=== PATIENT | female | born 1980 | race Caucasian/White ===

== ENCOUNTER 2017-09-04 07:27 | Emergency (ER) | payer SELFPAY ==
[~2017-09-04 07:27] MED LIST: AZIT500T45 PO; BACDS PO; CLI150 PO; CYCL-332 PO; DIA5 PO; IBU600 PO; IBU800 PO; IBUPROFEN; LOR05 PO; LOR5 PO; NAP250 PO; OXYC-689 PO; PER PO; TRA50 PO; TRAZ50 PO; TYLENOL
--- NOTE | 2017-09-04 07:37 | ER Report ---
History and Physical Time Seen By MD: 07:36 Hx. of Stated Complaint: COUGH FOR ONE WEEK. HPI/ROS CHIEF COMPLAINT: cough, hemoptysis HISTORY OF PRESENT ILLNESS: This is a 37 year old female. She has had a cough for a week. She noted some red blood with coughing yesterday and this morning. She has been having subjective fevers and chills. Chest tightness. Runny nose and sore throat. No epistaxis, but has a scab at the opening of the right nasal passage from blowing nose so much. No other bleeding such as blood in stool or urine and no bruising. She has had several bouts of diarrhea. She has some nausea and vomiting. She has been able to drink some water, but no food and having overall decreased oral intake. Slight decrease in urination, but no dysuria. Feels weak and tired overall, but no focal weakness. Having headache. REVIEW OF SYSTEMS: As above Allergies: Coded Allergies: Penicillins (Unverified Allergy, Mild, 09/04/17) Home Meds Active Scripts Ondansetron (ZOFRAN ODT) 4 Mg Tab.rapdis, 4 MG PO Q6H Y for NAUSEA/VOMITING, # 20 TAB.CATRACHITA 0 Refills Prov:CHET BRYANT MD 09/04/17 Guaifenesin/Codeine (GUAIFENESIN-CODEINE SYRUP) 5 Ml Syrp, 5 ML PO Q6H Y for COUGH, #120 ML 0 Refills Prov:CHET BRYANT MD 09/04/17 Azithromycin (ZITHROMAX) 250 Mg Tablet, 0 PO QDAY, #6 TAB 0 Refills Take 2 tablets today, then one daily for 4 more days Prov:CHET BRYANT MD 09/04/17 Doxycycline Hyclate (DOXYCYCLINE HYCLATE) 100 Mg Capsule, 100 MG PO BID, #20 CAPSULE 0 Refills Prov:CHET BRYANT MD 09/04/17 Discontinued Reported Medications Azithromycin (ZITHROMAX TRI-DUANE) 500 Mg Tablet, 500 MG PO QDAY 03/13/13 [None] No Conflict Check 02/10/12 Past Medical/Surgical History Hepatitis C Reviewed Nurses Notes: Yes Hx Smoking: Yes Hx Substance Use Disorder: No Hx Alcohol Use: Yes (OCC) Constitutional Vital Sign - Last 24 Hours 09/04/17 09/04/17 09/04/17 3/2/18 07:30 07:31 07:32 07:34 Pulse 115 Resp 20 B/P (MAP) 124/101 124/101 (109) 131/94 (106) Pulse Ox 82 O2 Delivery Room Air O2 Flow Rate 2.0 09/04/17 09/04/17 09/04/17 09/04/17 07:39 07:42 07:57 08:12 Pulse 109 111 105 Resp 13 27 18 B/P (MAP) 128/79 (95) 09/04/17 09/04/17 09/04/17 09/04/17 08:27 08:30 09:00 09:15 Pulse 95 101 98 Resp 14 24 15 B/P (MAP) 117/79 (92) Pulse Ox 92 09/04/17 09/04/17 09/04/17 09/04/17 09:30 09:45 10:00 10:15 Pulse 104 116 103 Resp 12 19 20 B/P (MAP) 117/89 (98) 108/86 (93) Pulse Ox 91 91 09/04/17 09/04/17 09/04/17 09/04/17 10:30 10:43 10:45 11:00 Pulse 95 100 93 Resp 9 18 19 9 B/P (MAP) 108/70 (83) 115/82 (93) Pulse Ox 91 83 92 92 O2 Delivery Room Air 09/04/17 09/04/17 11:15 11:46 Pulse 106 105 Resp 25 B/P (MAP) 121/82 (95) Pulse Ox 92 85 O2 Delivery Room Air Intake and Output 09/04/17 09/04/17 09/05/17 15:00 23:00 07:00 Intake Total 1000 ml Balance 1000 ml Physical Exam General Appearance: The patient is alert. No acute distress. Non-toxic in appearance. Eyes: Pupils are equal, round. No pallor, injection or icterus. ENT: Mucous membranes are moist. Normal oral mucosa. Posterior oropharynx has erythema. Nasal mucosa with erythema. Tympanic membranes show bilateral effusion , but no redness or bulging. Neck: Supple and non tender. Respiratory: Lungs are clear to auscultation. Cardiovascular: Regular rate and rhythm. No murmurs, gallops or rubs. Normal capillary refill. Gastrointestinal: Abdomen is soft and non tender. Nondistended. Normal active bowel sounds. Neurological: Alert and oriented x3. Skin: Warm and dry. No rashes. No bruising. Musculoskeletal: Extremities are nontender. No tenderness in back. DIFFERENTIAL DIAGNOSIS: After history and physical exam, differential diagnosis was considered for cough, hemoptysis, hypoxia and shortness of breath, likely infectious etiology such as pulmonary infectious process or influenza, but will look for other causes of bleeding and hemoptysis as well. Medical Decision Making Data Points Result Diagram: 09/04/17 1000 09/04/17 1000 Laboratory Hematology Test 09/04/17 07:35 09/04/17 10:00 Influenza Virus Type A (PCR) Negative (NEGATIVE) Influenza Virus Type B (PCR) Positive (NEGATIVE) Red Blood Count 4.35 M/uL (4.17-5.56) Mean Corpuscular Volume 104.1 fL (80.0-96.0) Mean Corpuscular Hemoglobin 36.0 pg (26.0-33.0) Mean Corpuscular Hemoglobin Concent 34.6 g/dL (32.0-36.0) Red Cell Distribution Width 12.6 % (11.5-14.5) Mean Platelet Volume 9.2 fL (7.2-11.1) Neutrophils (%) (Auto) % (39.4-72.5) Lymphocytes (%) (Auto) % (17.6-49.6) Monocytes (%) (Auto) % (4.1-12.4) Eosinophils (%) (Auto) % (0.4-6.7) Basophils (%) (Auto) % (0.3-1.4) Nucleated RBC Relative Count (auto) /100WBC Neutrophils # (Auto) K/uL (2.0-7.4) Lymphocytes # (Auto) K/uL (1.3-3.6) Monocytes # (Auto) K/uL (0.3-1.0) Eosinophils # (Auto) K/uL (0.0-0.5) Basophils # (Auto) K/uL (0.0-0.1) Nucleated RBC Absolute Count (auto) K/uL Neutrophils % (Manual) 46 % (39.4-72.5) Band Neutrophils % 14 % Lymphocytes % (Manual) 32 % (17.6-49.6) Atypical Lymphocytes % 1 % Monocytes % (Manual) 7 % (4.1-12.4) Eosinophils % (Manual) 0 % (0.4-6.7) Basophils % (Manual) 0 % (0.3-1.4) Peripheral Blood Smear Yes Y/N Prothrombin Time 15.0 seconds (12.0-14.4) Prothromb Time International Ratio 1.17 Activated Partial Thromboplast Time 25 seconds (23-35) Sodium Level 127 mmol/L (137-145) Potassium Level 3.3 mmol/L (3.5-5.0) Chloride Level 94 mmol/L (98-107) Carbon Dioxide Level 22 mmol/L (22-31) Blood Urea Nitrogen 15 mg/dl (7-18) Creatinine 1.00 mg/dl (0.52-1.04) Glomerular Filtration Rate Calc > 60.0 Random Glucose 98 mg/dl (75-110) Calcium Level 8.0 mg/dl (8.4-10.2) Total Bilirubin 0.9 mg/dl (0.2-1.3) Aspartate Amino Transf (AST/SGOT) 53 U/L (0-35) Alanine Aminotransferase (ALT/SGPT) 107 U/L (0-56) Alkaline Phosphatase 82 U/L (0-126) Total Protein 7.2 gm/dl (6.3-8.2) Albumin 3.3 g/dl (3.5-5.0) Chemistry Test 09/04/17 07:35 09/04/17 10:00 Influenza Virus Type A (PCR) Negative (NEGATIVE) Influenza Virus Type B (PCR) Positive (NEGATIVE) White Blood Count 5.3 k/uL (4.5-11.0) Red Blood Count 4.35 M/uL (4.17-5.56) Hemoglobin 15.7 g/dL (12.0-16.0) Hematocrit 45.3 % (34.0-47.0) Mean Corpuscular Volume 104.1 fL (80.0-96.0) Mean Corpuscular Hemoglobin 36.0 pg (26.0-33.0) Mean Corpuscular Hemoglobin Concent 34.6 g/dL (32.0-36.0) Red Cell Distribution Width 12.6 % (11.5-14.5) Platelet Count 48 K/uL (150-450) Mean Platelet Volume 9.2 fL (7.2-11.1) Neutrophils (%) (Auto) % (39.4-72.5) Lymphocytes (%) (Auto) % (17.6-49.6) Monocytes (%) (Auto) % (4.1-12.4) Eosinophils (%) (Auto) % (0.4-6.7) Basophils (%) (Auto) % (0.3-1.4) Nucleated RBC Relative Count (auto) /100WBC Neutrophils # (Auto) K/uL (2.0-7.4) Lymphocytes # (Auto) K/uL (1.3-3.6) Monocytes # (Auto) K/uL (0.3-1.0) Eosinophils # (Auto) K/uL (0.0-0.5) Basophils # (Auto) K/uL (0.0-0.1) Nucleated RBC Absolute Count (auto) K/uL Neutrophils % (Manual) 46 % (39.4-72.5) Band Neutrophils % 14 % Lymphocytes % (Manual) 32 % (17.6-49.6) Atypical Lymphocytes % 1 % Monocytes % (Manual) 7 % (4.1-12.4) Eosinophils % (Manual) 0 % (0.4-6.7) Basophils % (Manual) 0 % (0.3-1.4) Peripheral Blood Smear Yes Y/N Prothrombin Time 15.0 seconds (12.0-14.4) Prothromb Time International Ratio 1.17 Activated Partial Thromboplast Time 25 seconds (23-35) Glomerular Filtration Rate Calc > 60.0 Calcium Level 8.0 mg/dl (8.4-10.2) Total Bilirubin 0.9 mg/dl (0.2-1.3) Aspartate Amino Transf (AST/SGOT) 53 U/L (0-35) Alanine Aminotransferase (ALT/SGPT) 107 U/L (0-56) Alkaline Phosphatase 82 U/L (0-126) Total Protein 7.2 gm/dl (6.3-8.2) Albumin 3.3 g/dl (3.5-5.0) Coagulation Test 09/04/17 10:00 Prothrombin Time 15.0 seconds Prothromb Time International Ratio 1.17 Activated Partial Thromboplast Time 25 seconds EKG/Imaging Imaging CHEST W CONTRAST HISTORY: cough, hemoptysis, hypoxia ADDITIONAL HISTORY: None. TECHNIQUE: CTA chest with intravenous contrast attention to pulmonary arteries. Sagittal, coronal and slab 3D MIP coronal reconstructed images were also created for further evaluation and interpretation. One of the following dose optimization techniques was utilized in the performance of this exam: Automated exposure control; adjustment of the mA and/ or kV according to the patient's size; or use of an iterative reconstruction technique. Specific details can be referenced in the facility's radiology CT exam operational policy. CONTRAST: 75 mL Isovue-370 IV COMPARISON: None. FINDINGS: Heart/vessels: Negative. Mediastinum: Very small sliding-type hiatal hernia. Lymph nodes: Several mildly enlarged mediastinal and hilar lymph nodes. For example, an inferior pretracheal node measures 1.2 x 1.9 cm (image 34) and a superior right hilar node measures 1.5 x 2.0 cm (image 40). Lungs/pleura: Scattered groundglass to dense airspace consolidations within the right greater than left lobe and most notable within the central right middle and lower lobes with air bronchograms. No pleural fluid. No pneumothorax. Visualized upper abdomen: Negative. Bones/soft tissues: Unremarkable. IMPRESSION: 1. Multifocal right greater than left pulmonary infiltrates most consistent with pneumonia. Chest x-ray follow-up to ensure clearing suggested. 2. Mild mediastinal and right hilar adenopathy, most likely reactive. Results were called to Dr. CHET BRYANT at 09/04/2017 10:04 AM. Report Dictated By: Nicolas Brown MD at 09/04/2017 9:59 AM ED Course/Re-evaluation Clinical Indication for ER IV: Hydration, IV Access ED Course Nursing had difficulty getting IV access, but eventually was able to get an IV in the forearm. Not able to do a CTA chest, which was initially ordered to rule out pulmonary embolism as possible cause of symptoms, but this is felt to be less likely, and we are able get a CT chest with contrast with current IV. The patient was given a liter of normal saline while awaiting labs. Also given some Zofran 4mg IV and a dose of oral Guaifenesin with Codeine for cough. Imaging shows multifocal pneumonia, but no masses. Labs show a normal white count, but with a bandemia, but more importantly a thrombocytopenia. She has never been told she has low platelets in the past. She smokes and uses occasional alcohol. She has a low sodium and a low potassium on metabolic panel , but kidney function looks preserved, slightly increased BUN. She felt quite a bit better after a liter of normal saline and a second liter was given. Coagulation studies are normal. She does have Influenza B as well. Discussed all the results with the patient. Recommended hospitalization, however the patient did not want to be admitted. She has concerns about payment and cost as she has no insurance. We arranged home oxygen for her. We are going to start Doxycyline 100mg twice a day and Azithromycin 250mg 2 tablets today and then 1 daily for 4 days. I chose these two medications based on coverage for pneumonia, cost to the patient, and potential side effects with the different problems that we were seeing. We talked about risks and she signed an AMA form indicating that we had discussed all this. She is too far along in symptoms for Tamiflu to be useful. Also prescribed some Guaifenesin with Codeine to help with the cough. Prescribed Zofran 4mg to help with nausea and vomiting. Reinforced that she can return to the ER if worsening and we would admit to the hospital at that time. Decision to Disposition Date: Sep 04, 2017 Decision to Disposition Time: 11:10 Depart Departure Latest Vital Signs Vital Signs Date Time Temp Pulse Resp B/P (MAP) Pulse Ox O2 Delivery O2 Flow Rate FiO2 09/04/17 11:46 105 121/82 (95) 85 Room Air 09/04/17 11:15 25 09/04/17 07:34 2.0 Impression: Primary Impression: Community acquired bacterial pneumonia Additional Impressions: Thrombocytopenia Hyponatremia Hypoxia Hypokalemia Influenza B Condition: Improved Disposition: HOME OR SELF-CARE New Scripts Ondansetron (ZOFRAN ODT) 4 Mg Tab.rapdis 4 MG PO Q6H Y for NAUSEA/VOMITING, #20 TAB.CATRACHITA 0 Refills Prov: CHET BRYANT MD 09/04/17 Guaifenesin/Codeine (GUAIFENESIN-CODEINE SYRUP) 5 Ml Syrp 5 ML PO Q6H Y for COUGH, #120 ML 0 Refills Prov: CHET BRYANT MD 09/04/17 Azithromycin (ZITHROMAX) 250 Mg Tablet 0 PO QDAY, #6 TAB 0 Refills Take 2 tablets today, then one daily for 4 more days Prov: CHET BRYANT MD 09/04/17 Doxycycline Hyclate (DOXYCYCLINE HYCLATE) 100 Mg Capsule 100 MG PO BID, #20 CAPSULE 0 Refills Prov: CHET BRYANT MD 09/04/17 Patient Instructions: Community Acquired Pneumonia (ED), Hypokalemia (ED), Hyponatremia (ED), Hypoxia (ED), Thrombocytopenia (ED) Additional Instructions: We have provided information regarding the different problems found today. You have elected to be treated as an outpatient instead of being admitted to the hospital for treatment. Your conditions can be potentially serious, especially so if they worsen. If you have further bleeding, worsening of you breathing, continued vomiting despite medication, or worsening in other ways, please return to the hospital. Take the antibiotic Doxycycline hyclate 100mg twice a day for 10 days. Take the antibiotic Azithromycin 250mg tablets, take 2 today and then 1 daily for 4 more days. Home oxygen at 2 liters by nasal canula until you follow-up with a primary care doctor. For nausea, you can use Zofran 4mg, one every 6 hours as needed. Increase fluid intake and rest as needed. For cough, you can use Guaifenesin with Codeine, 1 teaspoon every 4 hours as needed for cough. Do not use your over the counter cough medicine while using this prescription cough medicine. You can continue to use Tylenol as needed for pain or for fevers. You can take 500mg 1-2 tablets every 6 hours. Please call either the [facility] or the [facility] for follow-up. This would be best done as soon as possible next week. You can always change your mind and return if needed for admission to the hospital, especially if worsening and not doing well. Problem Qualifiers CHET BRYANT MD Sep 04, 2017 07:37
[2017-09-04] MEDS ORDERED: IOPAMIDOL 76% 75 ML INFUS BTL 75 ML ONE (08:07)
[2017-09-04] MEDS ORDERED: NS 0.9% 150 ML BAG 150 ML ONE (08:07)
[2017-09-04] MEDS ORDERED: ONDANSETRON 4 MG/2 ML VIAL IVP ONE (08:30)
[2017-09-04] MEDS ORDERED: NS(*) 0.9% 1000 ML BAG 1,000 ML IV ONE (08:30)
[2017-09-04] MEDS ORDERED: guaiFENesin/CODEINE 5 ML UDBTL PO ONE (08:30)
[2017-09-04 09:25] LABS: INR 1.17
[2017-09-04] MEDS ORDERED: KETOROLAC 30 MG/ML VIAL IVP ONE (10:10)
--- NOTE | 2017-09-04 10:20 | RADIOLOGY IMAGING REPORT ---
FACILITY: [facility] PATIENT NAME: Jana Mccloud : 1980 MR: [id number] V: [id number] EXAM DATE: ORDERING PHYSICIAN: CHET BRYANT TECHNOLOGIST: Location: [facility] Patient: Jana Mccloud : 1980 Visit/Account:[id number] Date of Sevice: 09/04/2017 CHEST W CONTRAST HISTORY: cough, hemoptysis, hypoxia ADDITIONAL HISTORY: None. TECHNIQUE: CTA chest with intravenous contrast attention to pulmonary arteries. Sagittal, coronal a nd slab 3D MIP coronal reconstructed images were also created for further evaluation and interpretati on. One of the following dose optimization techniques was utilized in the performance of this exam: Autom ated exposure control; adjustment of the mA and/or kV according to the patient's size; or use of an i terative reconstruction technique. Specific details can be referenced in the facility's radiology C T exam operational policy. CONTRAST: 75 mL Isovue-370 IV COMPARISON: None. FINDINGS: Heart/vessels: Negative. Mediastinum: Very small sliding-type hiatal hernia. Lymph nodes: Several mildly enlarged mediastinal and hilar lymph nodes. For example, an inferior pre tracheal node measures 1.2 x 1.9 cm (image 34) and a superior right hilar node measures 1.5 x 2.0 cm (image 40). Lungs/pleura: Scattered groundglass to dense airspace consolidations within the right greater than l eft lobe and most notable within the central right middle and lower lobes with air bronchograms. No p leural fluid. No pneumothorax. Visualized upper abdomen: Negative. Bones/soft tissues: Unremarkable. IMPRESSION: 1. Multifocal right greater than left pulmonary infiltrates most consistent with pneumonia. Chest x-r ay follow-up to ensure clearing suggested. 2. Mild mediastinal and right hilar adenopathy, most likely reactive. Results were called to Dr. CHET BRYANT at 09/04/2017 10:04 AM. Report Dictated By: Nicolas Brown MD at 09/04/2017 9:59 AM Report E-Signed By: Nicolas Brown MD at 09/04/2017 10:15 AM [id number]
[2017-09-04 10:30] LABS: PLATELET COUNT, AUTOMATED 48 K/uL (150-450)
[2017-09-04] MEDS ORDERED: ROBC PO (11:12)
[2017-09-04] MEDS ORDERED: AZIT-1 PO (11:12)
[2017-09-04] MEDS ORDERED: DOXY-181 PO (11:12)
[2017-09-04] MEDS ORDERED: ONDA4TAB PO (11:12)
[2017-09-04] MEDS ORDERED: ACETAMINOPHEN 500 MG TAB PO ONE (11:25)
[2017-09-04 11:46] VITALS: BP 121/82
== END 2017-09-04 11:52 | disposition home or self-care (01) ==
LOC: ER 07:28
DX: J11.00 Influenza due to unidentified influenza virus with unspecified type of pneumonia (principal); D69.6 Thrombocytopenia, unspecified; E87.1 Hypo-osmolality and hyponatremia; R09.02 Hypoxemia; E87.6 Hypokalemia
CPT/HCPCS: 36415; 71260; 85025; 85610; 85730; 87502; 96361; 96374; 96375; 99284; J1885; J2405; J7030; Q9967; 82040; 82247; 82310; 82374; 82435; 82565; 82947; 84075; 84132; 84155; 84295; 84450; 84460; 84520